=== PATIENT | female | born 2005 | race Caucasian/White ===

== ENCOUNTER 2025-01-06 05:16 | Day surgery (SDC) | payer OTHER ==
[2025-01-02 12:52] VITALS: BMI 33.6
[2025-01-06] MEDS ORDERED: PROMETHAZINE HCL 25 MG/1 ML VIAL IVPB PRN (10:59)
[2025-01-06] MEDS ORDERED: ONDANSETRON 4 MG/2 ML VIAL IVPUSH PRN (10:59)
[2025-01-06] MEDS ORDERED: oxyCODONE HCL 5 MG TABLET PO PRN (10:59)
[2025-01-06] MEDS ORDERED: LACTATED RINGERS SOLUTION 1,000 ML IV SCH (11:00)
[2025-01-06] MEDS ORDERED: MIDAZOLAM HCL 2 MG/2 ML SINGLE DOSE VIAL ONE (11:33)
[2025-01-06] MEDS ORDERED: ROCURONIUM BROMIDE 50 MG/5 ML SYRINGE ONE (11:38)
[2025-01-06] MEDS ORDERED: PROPOFOL 20 ML ONE (11:38)
[2025-01-06] MEDS ORDERED: LIDOCAINE HCL 2% 100 MG/5 ML DISP.SYRIN ONE (11:39)
[2025-01-06] MEDS ORDERED: DEXAMETHASONE SOD PHOSPHATE 4 MG/1 ML VIAL ONE (11:42)
[2025-01-06] MEDS ORDERED: ceFAZolin SODIUM 1 GM VIAL ONE (11:46)
[2025-01-06] MEDS ORDERED: SEVOFLURANE 250 ML BTL ONE (11:46)
[2025-01-06] MEDS ORDERED: ACETAMINOPHEN INJECTION 100 ML ONE (11:46)
[2025-01-06] MEDS: ceFAZolin SODIUM 1 GM VIAL IVPB ONE (11:50)
[2025-01-06] MEDS ORDERED: GLYCOPYRROLATE 0.2 MG/1 ML VIAL ONE (12:26)
[2025-01-06] MEDS ORDERED: KETOROLAC TROMETHAMINE 30 MG/1 ML VIAL ONE (12:27)
[2025-01-06] MEDS ORDERED: NEOSTIGMINE METHYLSULFATE 0.5 MG/1 ML - 10 ML MDV ONE (12:27)
[2025-01-06 15:20] VITALS: RESP 16
[2025-01-06] MEDS ORDERED: oxyCODONE HCL 5 MG TABLET ONE (15:22)
[2025-01-06] MEDS: oxyCODONE HCL 5 MG TABLET PO PRN (15:23)
[2025-01-06 16:37] VITALS: BP 118/70; PULSE 92; TEMP 97.1
== END 2025-01-06 16:47 | disposition home or self-care (01) ==
LOC: JASU-SURG 05:16
PROVIDERS: ATTEND Obstetrics & Gynecology
PROC: 0UB24ZZ Excision of Bilateral Ovaries, Percutaneous Endoscopic Approach (ICD-10-PCS; principal; 2025-01-06 10:30)
DX: D27.1 Benign neoplasm of left ovary (principal); D27.0 Benign neoplasm of right ovary
CPT/HCPCS: 86850; 86900; 86901; 88307-TC; 94760; J0131